=== PATIENT | female | born 1990 | race Caucasian/White ===

== ENCOUNTER 2021-04-18 01:26 | Emergency (ER) | payer MEDICAID ==
[~2021-04-18] VITALS: Ht 175.3 cm; Wt 135.6 kg
[2021-04-18] MEDS ORDERED: ACETAMINOPHEN 500 MG TABLET PO ONE (01:45)
[2021-04-18] MEDS ORDERED: DOXYCYCLINE HYCLATE 100 MG TABLET PO ONE (01:45)
[2021-04-18] MEDS ORDERED: DOXY-354 PO (03:12)
[2021-04-18 04:30] VITALS: BP 114/78
== END 2021-04-18 04:45 | disposition home or self-care (01) ==
LOC: EMS 01:27
DX: L03.116 Cellulitis of left lower limb (principal); F17.200 Nicotine dependence, unspecified, uncomplicated
CPT/HCPCS: 99283